=== PATIENT | male | born 1990 | race Caucasian/White ===

== ENCOUNTER 2019-05-12 08:40 | Inpatient (IN) | payer MEDICARE, MEDICAID ==
[~2019-05-12] VITALS: Ht 304.8 cm; Wt 100.5 kg
[~2019-05-12 08:40] MED LIST: QUET25TA PO
[2019-05-12 09:27] LABS: BASOPHILS % (AUTO) 0.4 % (0-1); EOSINOPHILS # (AUTO) 0.1 X10'3 (0-0.9); EOSINOPHILS % (AUTO) 1.1 % (0-6); HEMATOCRIT 39.5 % (42.0-52.0); HEMOGLOBIN 13.7 g/dl (14.0-17.9); LYMPHOCYTES # (AUTO) 1.5 X10'3 (1.1-4.8); LYMPHOCYTES % (AUTO) 13.3 % (21-51); MEAN CORPUSCULAR HEMOGLOBIN 30.7 PG (27.0-31.0); MEAN CORPUSCULAR HGB CONC 34.7 g/dL (33.0-36.5); MEAN CORPUSCULAR VOLUME 88.6 FL (78-98); MEAN PLATELET VOLUME 8.2 FL (7.4-10.4); MONOCYTES # (AUTO) 0.7 X10'3 (0-0.9); MONOCYTES % (AUTO) 6.3 % (2-12); NEUTROPHILS # (AUTO) 9.1 X10'3 (1.8-7.7); NEUTROPHILS % (AUTO) 78.9 % (42-75); PLATELET COUNT 216 X10'3 (140-440); RED BLOOD COUNT 4.45 X10'6 (4.70-6.10); RED CELL DISTRIBUTION WIDTH 12.7 % (11.5-14.5); WHITE BLOOD COUNT 11.6 X10'3 (4.5-11.0)
[2019-05-12] MEDS ORDERED: enoxaparin 100mg/ml syringe SUBCUT ONE (09:40)
[2019-05-12 09:43] LABS: ALANINE AMINOTRANSFERASE 34 U/L (12-78); ALBUMIN 4.3 G/DL (3.4-5.0); ALBUMIN/GLOBULIN RATIO 1.4 (1.1-1.5); ALKALINE PHOSPHATASE 45 IU/L (46-116); ANION GAP 12 (8-16); ASPARTATE AMINO TRANSFERASE 16 U/L (10-37); BILIRUBIN,TOTAL 0.5 MG/DL (0.1-1.0); BLOOD UREA NITROGEN 6 MG/DL (7-18); BUN/CREATININE RATIO 4.3 (5.4-32.0); CALCIUM 8.9 MG/DL (8.5-10.1); CHLORIDE 106 MMOL/L (99-107); CREATININE 1.38 MG/DL (0.60-1.10); GLUCOSE 150 MG/DL (70-104); POTASSIUM 3.8 MMOL/L (3.5-5.1); SODIUM 141 MMOL/L (135-145); TOTAL CARBON DIOXIDE 22.9 MMOL/L (24-32); TOTAL PROTEIN 7.4 G/DL (6.4-8.2); eGFR 61 ML/MIN
[2019-05-12 09:48] LABS: D-DIMER 4.75 MG/L FEU (0-0.50)
[2019-05-12] MEDS ORDERED: normal saline 1000ML IV soln IVB ONE (10:05)
[2019-05-12] MEDS ORDERED: morphine 4 MG/ML inj SYRINge IV PRN (10:05)
[2019-05-12] MEDS ORDERED: ondansetron/PF 4mg/2ml inj IV ONE (10:05)
[2019-05-12] MEDS ORDERED: ZOLP10TA5 PO (11:18)
[2019-05-12] MEDS ORDERED: CLON-371 PO (11:18)
[2019-05-12] MEDS ORDERED: ALPR2TAB7 PO (11:18)
[2019-05-12] MEDS ORDERED: ATOR40TA72 PO (11:18)
[2019-05-12] MEDS ORDERED: PALI234D SUBCUT (11:18)
[2019-05-12] MEDS ORDERED: OLAN20TA34 PO (11:18)
[2019-05-12] MEDS ORDERED: FENO160T30 PO (11:18)
[2019-05-12] MEDS ORDERED: potassium Cl 20 mEq SR tablet PO PRN ×2 (11:25)
[2019-05-12] MEDS ORDERED: morphine 2 MG/ML inj. syringe IV PRN (11:25)
[2019-05-12] MEDS ORDERED: HYDROcodone/acetaminophen 5mg/325mg tablet PO PRN (11:25)
[2019-05-12] MEDS ORDERED: mag hydrox/Alum hydrox/simeth 30ml oral suspension PO PRN (11:25)
[2019-05-12] MEDS ORDERED: potassium CL 10mEq/100ml bag 100 ML IV PRN ×2 (11:25)
[2019-05-12] MEDS ORDERED: magnesium 4gm in 100ml NS 100 ML IV PRN (11:25)
[2019-05-12] MEDS ORDERED: magnesium Cl slow-release 64mg tablet PO PRN (11:25)
[2019-05-12] MEDS ORDERED: magnesium hydroxide 30ml (MOM) UD suspension PO PRN (11:25)
[2019-05-12] MEDS ORDERED: magnesium 2GM in 50ml NS 50 ML IV PRN (11:25)
[2019-05-12] MEDS: K and/or MAG REPLACEMENT MC SCH (11:25)
[2019-05-12] MEDS ORDERED: acetaminophen 325mg tablet PO PRN (11:25)
[2019-05-12] MEDS ORDERED: ondansetron/PF 4mg/2ml inj IV PRN (11:25)
[2019-05-12] MEDS ORDERED: clonazePAM 1mg tablet PO PRN (11:30)
[2019-05-12] MEDS ORDERED: ALPRAZolam 0.5mg tablet PO PRN (11:30)
[2019-05-12 11:59] LABS: CLARITY,URINE CLEAR (Clear); COLOR,URINE YELLOW (Yellow); GLUCOSE, URINE NEGATIVE (Neg); KETONES,URINE NEGATIVE (Neg); LEUKOCYTE ESTERASE ,URINE NEGATIVE (Neg); NITRITES, URINE NEGATIVE (Neg); OCCULT BLOOD,URINE NEGATIVE (Neg); PROTEIN,URINE NEGATIVE (Neg); UROBILINOGEN,URINE 0.2 E.U/dL (0.2-1.0)
[2019-05-12 12:00] LABS: UA COLLECTION TYPE VOIDED
[2019-05-12] MEDS ORDERED: iohexol 350MG/ML 100ml bottle IV ONE (12:12)
[2019-05-12] MEDS ORDERED: nicotine 21mg patch - 24 hr TD ONE (14:45)
[2019-05-12] MEDS: HYDROcodone/acetaminophen 10/325mg tab PO PRN ×2 (14:47→23:52)
[2019-05-12] MEDS: acetaminophen 325mg tablet PO PRN (16:48)
[2019-05-12] MEDS: normal saline 1000ml 1,000 ML IV SCH ×2 (18:30→21:22)
[2019-05-12 19:00] VITALS: BP 124/75
[2019-05-12 20:00] VITALS: BP_SYST 124; BP_SYST 133; BP_SYST 136; BP_DIAS 75; BP_DIAS 77
[2019-05-12] MEDS ORDERED: enoxaparin 40mg/0.4ml syringe SUBCUT SCH (20:00)
[2019-05-12] MEDS: morphine 2 MG/ML inj. syringe IV PRN (20:44)
[2019-05-12] MEDS ORDERED: temazepam 15mg capsule PO PRN (21:00)
[2019-05-12] MEDS: zolpidem 5mg tablet PO SCH (21:50)
[2019-05-12 23:00] VITALS: BP 117/78
[2019-05-13] VITALS (8 sets, daily range): BP systolic 119–140; BP diastolic 68–84
[2019-05-13] MEDS: morphine 2 MG/ML inj. syringe IV PRN ×4 (02:47→20:28)
[2019-05-13] MEDS: normal saline 1000ml 1,000 ML IV SCH ×3 (05:16→23:59)
--- NOTE | 2019-05-13 06:20 | NUR ---
Patient in room PCU 3024. I have received report from Betzaida RN and had the opportunity to ask questions and assume patient care.
[2019-05-13 06:23] LABS: BASOPHILS % (AUTO) 0.5 % (0-1); EOSINOPHILS # (AUTO) 0.2 X10'3 (0-0.9); EOSINOPHILS % (AUTO) 2.7 % (0-6); HEMATOCRIT 34.5 % (42.0-52.0); HEMOGLOBIN 12.3 g/dl (14.0-17.9); LYMPHOCYTES # (AUTO) 3.2 X10'3 (1.1-4.8); LYMPHOCYTES % (AUTO) 36.2 % (21-51); MEAN CORPUSCULAR HEMOGLOBIN 31.7 PG (27.0-31.0); MEAN CORPUSCULAR HGB CONC 35.6 g/dL (33.0-36.5); MEAN CORPUSCULAR VOLUME 88.9 FL (78-98); MEAN PLATELET VOLUME 8.4 FL (7.4-10.4); MONOCYTES # (AUTO) 0.7 X10'3 (0-0.9); MONOCYTES % (AUTO) 8.1 % (2-12); NEUTROPHILS # (AUTO) 4.7 X10'3 (1.8-7.7); NEUTROPHILS % (AUTO) 52.5 % (42-75); PLATELET COUNT 202 X10'3 (140-440); RED BLOOD COUNT 3.88 X10'6 (4.70-6.10); RED CELL DISTRIBUTION WIDTH 12.8 % (11.5-14.5)
[2019-05-13 06:28] LABS: ALANINE AMINOTRANSFERASE 27 U/L (12-78); ALBUMIN 3.6 G/DL (3.4-5.0); ALBUMIN/GLOBULIN RATIO 1.3 (1.1-1.5); ALKALINE PHOSPHATASE 42 IU/L (46-116); ANION GAP 6 (8-16); ASPARTATE AMINO TRANSFERASE 16 U/L (10-37); BILIRUBIN,TOTAL 0.3 MG/DL (0.1-1.0); BLOOD UREA NITROGEN 8 MG/DL (7-18); BUN/CREATININE RATIO 6.5 (5.4-32.0); CALCIUM 8.3 MG/DL (8.5-10.1); CHLORIDE 110 MMOL/L (99-107); CHOL/HDL RATIO 3.4 (0.00-4.99); CHOLESTEROL 109 MG/DL (0-200); CREATININE 1.24 MG/DL (0.60-1.10); GLUCOSE 99 MG/DL (70-104); HDL CHOLESTEROL 32 MG/DL (35-60); LDL CHOLESTEROL 60 MG/DL (50-100); MAGNESIUM 1.9 MG/DL (1.5-2.4); PHOSPHORUS 3.3 MG/DL (2.3-4.5); POTASSIUM 3.6 MMOL/L (3.5-5.1); SODIUM 143 MMOL/L (135-145); TOTAL CARBON DIOXIDE 26.8 MMOL/L (24-32); TOTAL PROTEIN 6.4 G/DL (6.4-8.2); TRIGLYCERIDES 147 MG/DL (20-135); eGFR 69 ML/MIN
--- NOTE | 2019-05-13 06:30 | NUR ---
Patient in room PCU 3024. I have received report from Betzaida RN and had the opportunity to ask questions and assume patient care.
[2019-05-13 06:51] LABS: PARTIAL THROMBOPLASTIN TIME 33 SECONDS (22-32)
[2019-05-13] MEDS: atorvastatin 20mg tablet PO SCH (07:25)
[2019-05-13] MEDS: fenofibrate 145mg tablet PO SCH (07:25)
[2019-05-13] MEDS: enoxaparin 100mg/ml syringe SUBCUT SCH ×2 (07:26→20:27)
[2019-05-13] MEDS: K and/or MAG REPLACEMENT MC SCH (07:27)
[2019-05-13] MEDS: olanzapine 10mg tablet PO SCH (07:32)
[2019-05-13] MEDS: HYDROcodone/acetaminophen 10/325mg tab PO PRN ×2 (10:37→17:02)
--- NOTE | 2019-05-13 13:14 | NUR ---
PAGER ID: [phone] MESSAGE: [id number] Mike Donald: DIXON issa nicotine patch was d/c'ed, pt requesting another patch. thanks [phone]
--- NOTE | 2019-05-13 14:29 | NUR ---
PAGER ID: [phone] MESSAGE: RE: Mike Wilson. Room: 3024B. Pt requesting nicotine patch. Original order was a once dose. -[facility] #[id number] Dr. Garcia paged concerning Pt's want for a nicotine patch
[2019-05-13] MEDS ORDERED: nicotine 21mg patch - 24 hr TD ONE (14:55)
[2019-05-13] MEDS: acetaminophen 325mg tablet PO PRN (15:48)
--- NOTE | 2019-05-13 18:05 | NUR ---
I agree with all of Daryl hernandez's charting
--- NOTE | 2019-05-13 18:27 | NUR ---
Problems reprioritized. Patient report given, questions answered & plan of care reviewed with Asad KILPATRICK.
--- NOTE | 2019-05-13 18:28 | NUR ---
Problems reprioritized. Patient report given, questions answered & plan of care reviewed with Asad KILPATRICK.
--- NOTE | 2019-05-13 19:10 | NUR ---
Patient in room PCU 3019. I have received report from Eddy KILPATRICK, and had the opportunity to ask questions and assume patient care
[2019-05-13] MEDS: zolpidem 5mg tablet PO SCH (20:27)
[2019-05-14 03:00] VITALS: BP 117/75
[2019-05-14 05:02] LABS: BASOPHILS % (AUTO) 0.6 % (0-1); EOSINOPHILS # (AUTO) 0.3 X10'3 (0-0.9); HEMATOCRIT 34.1 % (42.0-52.0); HEMOGLOBIN 12.1 g/dl (14.0-17.9); LYMPHOCYTES # (AUTO) 2.9 X10'3 (1.1-4.8); LYMPHOCYTES % (AUTO) 33.5 % (21-51); MEAN CORPUSCULAR HEMOGLOBIN 31.3 PG (27.0-31.0); MEAN CORPUSCULAR HGB CONC 35.4 g/dL (33.0-36.5); MEAN CORPUSCULAR VOLUME 88.3 FL (78-98); MONOCYTES # (AUTO) 0.8 X10'3 (0-0.9); MONOCYTES % (AUTO) 9.4 % (2-12); NEUTROPHILS # (AUTO) 4.5 X10'3 (1.8-7.7); NEUTROPHILS % (AUTO) 52.5 % (42-75); PLATELET COUNT 218 X10'3 (140-440); RED BLOOD COUNT 3.87 X10'6 (4.70-6.10); RED CELL DISTRIBUTION WIDTH 12.3 % (11.5-14.5); WHITE BLOOD COUNT 8.6 X10'3 (4.5-11.0)
[2019-05-14 05:16] LABS: ALANINE AMINOTRANSFERASE 25 U/L (12-78); ALBUMIN 3.5 G/DL (3.4-5.0); ALBUMIN/GLOBULIN RATIO 1.3 (1.1-1.5); ALKALINE PHOSPHATASE 37 IU/L (46-116); ANION GAP 7 (8-16); ASPARTATE AMINO TRANSFERASE 15 U/L (10-37); BILIRUBIN,TOTAL 0.3 MG/DL (0.1-1.0); BLOOD UREA NITROGEN 6 MG/DL (7-18); BUN/CREATININE RATIO 5.6 (5.4-32.0); CALCIUM 8.6 MG/DL (8.5-10.1); CHLORIDE 108 MMOL/L (99-107); CREATININE 1.07 MG/DL (0.60-1.10); GLUCOSE 94 MG/DL (70-104); MAGNESIUM 1.9 MG/DL (1.5-2.4); PHOSPHORUS 4.3 MG/DL (2.3-4.5); POTASSIUM 3.9 MMOL/L (3.5-5.1); SODIUM 143 MMOL/L (135-145); TOTAL CARBON DIOXIDE 27.8 MMOL/L (24-32); TOTAL PROTEIN 6.3 G/DL (6.4-8.2); eGFR 82 ML/MIN
[2019-05-14 06:00] VITALS: BP 132/84
[2019-05-14] MEDS: acetaminophen 325mg tablet PO PRN ×2 (07:22)
--- NOTE | 2019-05-14 07:23 | NUR ---
Per primary RN request, administered tylenol per c/o headache rated 10/10. Pt expressed that he would like tylenol for his headache.
[2019-05-14] MEDS ORDERED: nicotine 21mg patch - 24 hr TD SCH (08:00)
[2019-05-14] MEDS ORDERED: apixaban 5mg tablet PO SCH (08:00)
[2019-05-14] MEDS: fenofibrate 145mg tablet PO SCH (09:26)
[2019-05-14] MEDS: atorvastatin 20mg tablet PO SCH (09:26)
[2019-05-14] MEDS: olanzapine 10mg tablet PO SCH (09:27)
[2019-05-14] MEDS ORDERED: APIX5TAB3 PO ×2 (09:29)
[2019-05-14] MEDS: normal saline 1000ml 1,000 ML IV SCH (09:29)
[2019-05-14] MEDS ORDERED: NICO-687 TD (09:29)
[2019-05-14 11:00] VITALS: BP 113/74
--- NOTE | 2019-05-14 11:26 | NUR ---
Per patient request, phoned in prescriptions to [facility] in [place], [place].
--- NOTE | 2019-05-14 13:00 | NUR ---
d/c education provided; all questions answered. IV removed; cannula intact. pt wheeled down with all belongings.
== END 2019-05-14 13:03 | disposition home or self-care (01) | DRG 299 ==
LOC: ER 08:41 → PCU 3S 18:53 → CMPBEDREQ 19:26 → PCU 3S 05-13 17:16
PROVIDERS: ADMIT Family Medicine; ATTEND Family Medicine
PROC: B32T1ZZ Computerized Tomography (CT Scan) of Left Pulmonary Artery using Low Osmolar Contrast (ICD-10-PCS; principal; 2019-05-12)
PROC: B3201ZZ Computerized Tomography (CT Scan) of Thoracic Aorta using Low Osmolar Contrast (ICD-10-PCS; 2019-05-12)
PROC: B32S1ZZ Computerized Tomography (CT Scan) of Right Pulmonary Artery using Low Osmolar Contrast (ICD-10-PCS; 2019-05-12)
DX: I82.411 Acute embolism and thrombosis of right femoral vein (principal); I26.99 Other pulmonary embolism without acute cor pulmonale; D68.59 Other primary thrombophilia; I82.431 Acute embolism and thrombosis of right popliteal vein; I82.511 Chronic embolism and thrombosis of right femoral vein; I82.531 Chronic embolism and thrombosis of right popliteal vein; F17.210 Nicotine dependence, cigarettes, uncomplicated; F20.9 Schizophrenia, unspecified; E78.1 Pure hyperglyceridemia; E78.5 Hyperlipidemia, unspecified; G43.109 Migraine with aura, not intractable, without status migrainosus; F31.9 Bipolar disorder, unspecified; F42.9 Obsessive-compulsive disorder, unspecified; Z79.01 Long term (current) use of anticoagulants; Z82.49 Family history of ischemic heart disease and other diseases of the circulatory system; Z71.6 Tobacco abuse counseling; Z71.41 Alcohol abuse counseling and surveillance of alcoholic
CPT/HCPCS: 36415; 71045; 71275; 80053; 80061; 81003; 83036; 83735; 84100; 84484; 85025; 85379; 85610; 85730; 87081; 93306; 93971; 96361; 96374; 96375; 99285; G0378; J1650; J2270; J2405; J7030; Q9967

== ENCOUNTER 2019-07-25 15:13 | Emergency (ER) | payer MEDICARE, MEDICAID ==
[~2019-07-25] VITALS: Ht 177.8 cm; Wt 90.0 kg
[~2019-07-25 15:13] MED LIST changes: +ALPR2TAB7 PO; +APIX5TAB3 PO; +ATOR40TA72 PO; +CLON-371 PO; +FENO160T30 PO; +NICO-687 TD; +OLAN20TA34 PO; +PALI234D SUBCUT; -QUET25TA PO; +ZOLP10TA5 PO
--- NOTE | 2019-07-25 15:52 | NUR ---
came in for pain in his R groin has hx of blood clot on 05/12/19 and was told to come to er by his hematologest
[2019-07-25 17:49] VITALS: BP 139/81
== END 2019-07-25 17:52 | disposition home or self-care (01) ==
LOC: ER 15:14
DX: M79.661 Pain in right lower leg (principal); M79.89 Other specified soft tissue disorders; F20.9 Schizophrenia, unspecified; R10.30 Lower abdominal pain, unspecified; Z87.891 Personal history of nicotine dependence; Z79.899 Other long term (current) drug therapy; Z86.718 Personal history of other venous thrombosis and embolism
CPT/HCPCS: 93971; 99284

== ENCOUNTER 2022-12-29 11:18 | Emergency (ER) | payer MEDICARE, MEDICAID ==
[~2022-12-29] VITALS: Ht 177.8 cm; Wt 113.6 kg
[2022-12-29 11:28] VITALS: BP 129/76
[2022-12-29] MEDS ORDERED: proparacaine 0.5% ophthalmic drops 15ml LEFTEYE ONE (12:30)
[2022-12-29] MEDS ORDERED: polymyxin B sulf/tmp ophth drops 10ml EACHEYE ONE (12:50)
[2022-12-29] MEDS ORDERED: clindamycin 150mg capsule PO ONE (12:50)
[2022-12-29] MEDS ORDERED: CLIN300C71 PO (12:59)
== END 2022-12-29 13:22 | disposition home or self-care (01) ==
LOC: ER 11:19
DX: H10.32 Unspecified acute conjunctivitis, left eye (principal); F20.9 Schizophrenia, unspecified; Z79.899 Other long term (current) drug therapy; Z79.1 Long term (current) use of non-steroidal anti-inflammatories (NSAID); Z79.2 Long term (current) use of antibiotics
CPT/HCPCS: 99283

== ENCOUNTER 2023-02-16 11:39 | Emergency (ER) | payer MEDICARE, MEDICAID ==
[~2023-02-16] VITALS: Ht 177.8 cm; Wt 114.4 kg
[2023-02-16 11:40] VITALS: BP 156/80
[2023-02-16] MEDS ORDERED: TOBR5DRO12 RIGHTEYE (12:19)
[2023-02-16] MEDS ORDERED: AMOX-117 PO (12:19)
== END 2023-02-16 12:27 | disposition home or self-care (01) ==
LOC: ER 11:39
DX: H15.101 Unspecified episcleritis, right eye (principal); F20.9 Schizophrenia, unspecified; Z79.899 Other long term (current) drug therapy; Z79.1 Long term (current) use of non-steroidal anti-inflammatories (NSAID); Z79.2 Long term (current) use of antibiotics
CPT/HCPCS: 99283

== ENCOUNTER 2023-12-13 13:10 | Emergency (ER) | payer MEDICARE, MEDICAID ==
[~2023-12-13] VITALS: Ht 177.8 cm; Wt 118.2 kg
[2023-12-13 13:11] VITALS: BP 143/92; PULSE 119; RESP 18; TEMP 98.4; O2SAT 97
[2023-12-13] MEDS: amox tr/potassium clavulanate 875/125mg TAB PO ONE (15:13)
[2023-12-13] MEDS: DOXYCYCLINE 100MG CAPSULE PO STA (15:13)
[2023-12-13] MEDS: proparacaine 0.5% ophthalmic drops 15ml EACHEYE ONE (15:21)
[2023-12-13] MEDS: fluorescein sod 1mg ophthalmic strip RIGHTEYE ONE (15:21)
[2023-12-13 15:26] LABS: BASOPHILS % (AUTO) 0.6 % (0-1); EOSINOPHILS # (AUTO) 0.2 X10'3 (0-0.9); EOSINOPHILS % (AUTO) 2.9 % (0-6); HEMATOCRIT 41.5 % (42.0-52.0); HEMOGLOBIN 14.3 g/dl (14.0-17.9); LYMPHOCYTES % (AUTO) 28.3 % (21-51); MEAN CORPUSCULAR HGB CONC 34.5 g/dL (33.0-36.5); MEAN CORPUSCULAR VOLUME 86.9 FL (78-98); MONOCYTES # (AUTO) 0.6 X10'3 (0-0.9); MONOCYTES % (AUTO) 8.9 % (2-12); NEUTROPHILS # (AUTO) 4.2 X10'3 (1.8-7.7); NEUTROPHILS % (AUTO) 59.3 % (42-75); PLATELET COUNT 267 X10'3 (140-440); RED BLOOD COUNT 4.78 X10'6 (4.70-6.10); RED CELL DISTRIBUTION WIDTH 13.2 % (11.5-14.5); WHITE BLOOD COUNT 7.1 X10'3 (4.5-11.0)
[2023-12-13 15:38] LABS: ALANINE AMINOTRANSFERASE 49 U/L (12-78); ALBUMIN/GLOBULIN RATIO 1.4 (1.1-1.5); ALKALINE PHOSPHATASE 49 IU/L (46-116); ANION GAP 11 (8-16); ASPARTATE AMINO TRANSFERASE 27 U/L (10-37); BILIRUBIN,TOTAL 0.4 MG/DL (0.1-1.0); BLOOD UREA NITROGEN 12 MG/DL (7-18); BUN/CREATININE RATIO 10.7 (10.0-20.0); CALCIUM 8.1 MG/DL (8.5-10.1); CHLORIDE 107 MMOL/L (99-107); CREATININE 1.12 MG/DL (0.60-1.10); GLUCOSE 136 MG/DL (70-104); POTASSIUM 3.8 MMOL/L (3.5-5.1); SODIUM 144 MMOL/L (135-145); TOTAL PROTEIN 6.8 G/DL (6.4-8.2); eCRCL 97 ML/MIN; eGFR 76 ML/MIN
[2023-12-13 15:43] LABS: C-REACTIVE PROTEIN 0.16 MG/DL (0.0-0.5)
[2023-12-13] MEDS: dexamethasone sod phosphate 10mg/ml inj PO STA (15:57)
[2023-12-13] MEDS ORDERED: DOXY-457 PO (16:00)
[2023-12-13] MEDS ORDERED: AMOX-117 PO (16:00)
== END 2023-12-13 16:12 | disposition home or self-care (01) ==
LOC: ER 13:10
DX: H01.9 Unspecified inflammation of eyelid (principal); Z79.2 Long term (current) use of antibiotics; Z79.899 Other long term (current) drug therapy
CPT/HCPCS: 36415; 70486; 80053; 83605; 84145; 84484; 85025; 85651; 86140; 87040; 87070; 99284; J1100; 87077; 87186; A6250

== ENCOUNTER 2024-07-26 20:50 | Emergency (ER) | payer MEDICARE, MEDICAID ==
[~2024-07-26] VITALS: Ht 177.8 cm; Wt 127.3 kg
[~2024-07-26 20:50] MED LIST changes: -OLAN20TA34 PO; +OLAN20TA81 PO
[2024-07-26 21:09] VITALS: BP 152/95; PULSE 104; RESP 19; TEMP 98.7; O2SAT 96
== END 2024-07-27 00:13 | disposition left against medical advice (07) ==
LOC: ER 20:51
DX: M79.604 Pain in right leg (principal); M79.89 Other specified soft tissue disorders; Z53.21 Procedure and treatment not carried out due to patient leaving prior to being seen by health care provider

== ENCOUNTER 2024-07-27 09:51 | Emergency (ER) | payer MEDICARE, MEDICAID ==
[~2024-07-27] VITALS: Ht 177.8 cm; Wt 128.8 kg
[2024-07-27 12:48] VITALS: BP 165/90; PULSE 85; RESP 15; O2SAT 95
[2024-07-27 13:44] VITALS: TEMP 97.8
== END 2024-07-27 13:51 | disposition home or self-care (01) ==
LOC: ER 09:52
DX: M79.604 Pain in right leg (principal); F20.9 Schizophrenia, unspecified; Z79.899 Other long term (current) drug therapy; Z86.711 Personal history of pulmonary embolism; Z79.01 Long term (current) use of anticoagulants; Z86.718 Personal history of other venous thrombosis and embolism
CPT/HCPCS: 93971; 99284